=== PATIENT | male | born 1945 | race Caucasian/White ===

== ENCOUNTER 2016-08-26 10:12 | Inpatient (IN) ==
--- NOTE | 2016-08-25 21:07 | Discharge Summary ---
<Greer Doe - Last Filed: 08/25/16 21:05> Date of Encounter: 08/25/16 - Discharge Diagnosis (1) Left shoulder pain Priority: Primary Status: Acute Qualifiers: Chronicity: acute Qualified Code(s): M25.512 - Pain in left shoulder (2) Status post total shoulder arthroplasty Priority: Primary Status: Acute Qualifiers: Laterality: left Qualified Code(s): Z96.612 - Presence of left artificial shoulder joint (3) CAD (coronary artery disease) Priority: Secondary Status: Chronic Qualifiers: Coronary Disease-Associated Artery/Lesion type: unspecified vessel or lesion type [place] vs. transplanted heart: unspecified whether [place] or transplanted heart Associated angina: angina presence unspecified Qualified Code(s): I25.10 - Atherosclerotic heart disease of [place] coronary artery without angina pectoris (4) Tobacco abuse Priority: Secondary Status: Chronic - Discharge Medications Home Medications: OxyCODONE Immed Rel [Roxicodone 5 MG] 5 - 10 mg PO Q6HR PRN #40 tablet 08/25/16 [Rx] Aspirin 81 mg PO HS 08/26/16 [History] Atorvastatin [Lipitor] 40 mg PO HS 08/26/16 [History] Clopidogrel [Plavix] 75 mg PO HS 08/26/16 [History] Escitalopram [Lexapro] 10 mg PO DAILY 08/26/16 [History] Metoprolol XL (24 HR) Succ [Toprol XL] 50 mg PO HS 08/26/16 [History] Nitroglycerin [Nitrostat] 0.4 mg SL Q5M PRN 08/26/16 [History] Omeprazole [PriLOSEC] 40 mg PO DAILY 08/26/16 [History] Oxycodone HCl/Acetaminophen [Percocet 5-325 mg Tablet] 1 each PO Q6H PRN [History] Ranitidine HCl [Zantac] 150 mg PO BID 08/26/16 [History] TraZODone 50 mg PO HS 08/26/16 [History] Allergies/Adverse Reactions: Allergies acetaminophen [From Vicodin] Adverse Reaction (Verified 08/26/16 12:08) Vomiting hydrocodone [From Vicodin] Adverse Reaction (Verified 08/26/16 12:08) Vomiting Hydromorphone [From Dilaudid] Adverse Reaction (Verified 08/26/16 12:08) Difficulty Breathing Primary care physician: Ángel Arguelles - Patient Status Disposition: Home, Self-Care Condition: Good - Discharge Instructions Follow Up With: Alexander Hansen MD [Partnered Physician] - 09/24/16 10:30 am Greer Doe PAC [Physician Setter Molding And Coremaking Machines] - 09/06/16 10:45 am Ángel Arguelles [Primary Care Provider] - - Hospital Course Hospital course: Mr. Back is a 70 year old male - Time Spent with Patient Total time spent providing and/or coordinating discharge services: <Alexander Hansen - Last Filed: 08/27/16 06:21> Date of Encounter: 08/27/16 Time of Encounter: 06:20 - Discharge Diagnosis (1) Left shoulder pain Priority: Primary Status: Acute Qualifiers: Chronicity: acute Qualified Code(s): M25.512 - Pain in left shoulder (2) Status post total shoulder arthroplasty Priority: Secondary Status: Acute Qualifiers: Laterality: left Qualified Code(s): Z96.612 - Presence of left artificial shoulder joint (3) CAD (coronary artery disease) Priority: Secondary Status: Chronic Qualifiers: Coronary Disease-Associated Artery/Lesion type: unspecified vessel or lesion type [place] vs. transplanted heart: unspecified whether [place] or transplanted heart Associated angina: angina presence unspecified Qualified Code(s): I25.10 - Atherosclerotic heart disease of [place] coronary artery without angina pectoris (4) Tobacco abuse Priority: Secondary Status: Chronic (5) Obesity (BMI 35.0-39.9 without comorbidity) Priority: Secondary Status: Chronic Primary care physician: Ángel Arguelles - Patient Status Functional capacity at discharge: independent ambulation Overall status at discharge: patient is progressing back to baseline - Hospital Course Hospital course: Mr. Back is a 70 year old male The patient had an uneventful postoperative course. They received antibiotics and physical therapy and were discharged in stable condition. There will follow -up in the office in 2 weeks. - Time Spent with Patient Total time spent providing and/or coordinating discharge services:
[2016-08-26] MEDS ORDERED: Albuterol 2.5 MG/3 ML NEBULIZER IH ONE (10:32)
[2016-08-26] MEDS ORDERED: CeFAZolin Pre 2,000 MG/100 ML 2,000 MG/100 ML BAG IVPB ONE (10:32)
[2016-08-26] MEDS ORDERED: Lidocaine 1% 20 ML MDV ID ONE (10:32)
--- NOTE | 2016-08-26 10:42 | History & Physical Report ---
Date of Encounter: 08/26/16 Time of Encounter: 10:42 24 Hour HP Update - Instructions Instructions: If the History and Physical is less than 30 days old and was completed prior to A.M. admission and or procedure and has NOT been updated on calendar day of procedure please complete this update prior to performing procedure. - Update Patient reports changes in Medical Condition: No Changes in assessment/condition: No Changes in Medication: No Preop tests/diagnostics Reviewed: Yes Surgery Remains Indicated: Yes Consent for Planned Operative Procedure(s) Verified: Yes - Pre-Operative Checklist Preoperative Checklist Indicated: No Prophylactic Antibiotic Ordered: Yes Is VTE Prophylaxis Indicated?: Yes
--- NOTE | 2016-08-26 10:51 | Anesthesia Evaluation PreOp ---
Date of Encounter: 08/26/16 Time of Encounter: 10:49 - Past History Planned Operation: Left Total Shoulder Replacement Cardiac History: [place] ([place] x 2), HTN, Hyperlipidemia, Cardiac Stent (stents x 4) Pulmonary History: Smoker (60 years), Snore PUMP TECHNICIAN History: TIA Other Medical History: Denies Any Significant HX, GERD Anesthesia History: No Prior Anesthetic Complications, Past Anesthesia Alcohol Use: occasionally Drug use: none Medications and Allergies OxyCODONE Immed Rel [Roxicodone 5 MG] 5 - 10 mg PO Q6HR PRN #40 tablet 08/25/16 [Rx] Allergies acetaminophen [From Vicodin] Adverse Reaction (Unverified 06/01/15 10:32) Vomiting hydrocodone [From Vicodin] Adverse Reaction (Unverified 06/01/15 10:32) Vomiting Hydromorphone [From Dilaudid] Adverse Reaction (Unverified 06/01/15 10:32) Difficulty Breathing - Meds/Allergy Pre-op Review Medications Reviewed: Yes Allergies Reviewed: Yes Beta Blockers on Current Med List: Yes If Beta Blockers taken, Date/Time (Last Dose taken): 08/25/2016 at 2030 Anesthesia Results - Imaging EKG: report reviewed (08/16/2016 SR, 1st degree AV block, NSST abnormality) Anesthesia Exam O2 Sat Height 1.73 m Height 1.73 m Height 1.73 m Weight 108.863 kg Weight 108.863 kg Weight 108.863 kg O2 Sat by Pulse Oximetry 95 O2 Sat by Pulse Oximetry 95 O2 Sat by Pulse Oximetry 95 Vital Signs Temp Pulse Resp BP Pulse Ox 98.7 F 61 18 127/76 95 08/26/16 10:38 08/26/16 10:38 08/26/16 10:38 08/26/16 10:38 08/26/16 10:38 Height: 5'8'' Weight: 240 lbs NPO (# of Hours): 8 Pain Scale: 9 (left shoulder) Pain Scale Used: Numeric (1 - 10) - HEENT Pupil (Motor): EOMI Mallampati: II Teeth: Edentulous Oral Opening: Greater than 3 - PUMP TECHNICIAN LOC: Oriented PUMP TECHNICIAN Motor: Normal RUE, Normal RLE, Normal LLE, Normal Face, Deficit LUE PUMP TECHNICIAN Sensory: Normal: RUE, LLE, Face, Deficit: LUE (numbness/tingling) - Cardiac Rhythm: Regular Murmur: None - Pulmonary Breath Sounds: bilateral Clear Respiratory Effort: Symmetrical Anesthesia Assess/Plan ASA Score: 3 Modified [place] Scale for Level of Consciousness: Cooperative, oriented, and tranquil Anesthetic Plan: General Monitoring Plan: Standard Monitors Recovery Plan: PACU
[2016-08-26] MEDS: Ringers Solution, Lactated 1,000 ML IVC SCH ×2 (11:00→14:22)
[2016-08-26] MEDS ORDERED: *HR* Promethazine 25 MG/ML VIAL IVP PRN (12:26)
[2016-08-26] MEDS ORDERED: Ondansetron 4 MG/2 ML VIAL ONE (12:47)
[2016-08-26] MEDS ORDERED: Lidocaine -MPF 2% 2 ML VIAL ONE (12:47)
[2016-08-26] MEDS ORDERED: Dexamethasone 4 MG/ML VIAL ONE (12:47)
[2016-08-26] MEDS ORDERED: Lidocaine -MPF 4% 5 ML AMPUL ONE (12:47)
[2016-08-26] MEDS ORDERED: *HR* Succinylcholine 200 MG/10 ML VIAL IVP ONE (12:47)
[2016-08-26] MEDS ORDERED: *HR* FentaNYL (PF) 100 MCG/2 ML VIAL ONE ×3 (12:48→14:49)
[2016-08-26] MEDS ORDERED: *HR* Midazolam HCl 2 MG/2 ML VIAL ONE (12:48)
[2016-08-26] MEDS ORDERED: *HR* Morphine 10 MG/ML VIAL ONE ×2 (13:28→14:48)
--- NOTE | 2016-08-26 14:21 | Orthopedic Operative Note ---
Date of procedure: 08/26/16 Pre-op diagnosis: Painful left total shoulder replacement reverse Post-op diagnosis: same Procedure: Procedure: Left Revision Total Shoulder replacement reverse Estimated blood loss: 500 cc Hardware: Arthrex large baseplate, 24.5 screws one 6.5 screw, 42 lateralized sphere, 14 humeral stem, 3 Liane Procedural Notes: No sign of infection no abnormal poly-wear Operative procedure: The patient was brought to the operating room and placed on the operating room table. The patient was placed in the modified beachchair position. All pressure points were padded appropriately. And the head was stabilized in the neutral position. The operative extremity was prepped and draped in the sterile surgical fashion. The patient received IV antibiotics prior to skin incision. A standard deltopectoral approach was made to the operative shoulder. Incision was made to the skin and subcutaneous tissue through the old incision,hemo stasis was obtained with Bovie cautery. Using careful blunt dissection the cephalic vein was identified and mobilized medially. The deltopectoral interval was developed and the clavipectoral fascia was incised. An extensive debridement was performed, and the shoulder was dislocated subscap was not identifiable. Using an osteotome to clear out the soft tissue, the humeral component was gently removed. The component was not grossly loose but was removed without significant bone loss although fragmentation of the proximal humerus occurred with retraction for exposure of the glenoid. Anterior and posterior [place] retractors were used to expose the glenoid, the glenoid component was removed without incident. First the glenosphere was disengaged, and the screws removed from the baseplate, and finally the baseplate was removed without significant bone loss. The glenoid guide was seated the centering hole was made the glenoid was reamed with the appropriate large reamer. Baseplate was positioned in inferior tilt position to make a change. The glenoid baseplate was seated and secured and locked in place with 24.5 compression screws and one 6.5 compression screw.. The baseplate was irrigated and dried 42 lateral glenosphere was seated and secured. Attention was then turned to the humeral side. The humerus was reamed and broached up to its appropriate size 14 in 20 degrees of retroversion. Trial reduction found the shoulder to be relocatable. Trial components were removed, real implants were seated. Trial reduction found the shoulder to be stable with the appropriate 3 Liane. The trial implants were removed the real implants were seated and secured in the shoulder was reduced. The patient had excellent motion and excellent stability no shuck. The deep tissue was irrigated with pulse irrigation deltopectoral interval was closed with #2 PDS suture. Superficially the subcutaneous tissue was closed with 0 PDS suture, the skin was closed with Dermabond and skin miles. The patient placed sterile dressing, postoperative brace extubated and transferred to the recovery room in stable condition. Anesthesia: GETA Surgeon: Alexander Hansen Sewing Machine Operator: Greer Doe Condition: stable Disposition: PACU
[2016-08-26] MEDS: *HR* Morphine 2 MG/ML SYRINGE IVP PRN ×2 (14:55→15:20)
[2016-08-26] MEDS ORDERED: *HR* Propofol 200 MG/20 ML VIAL IVP ONE (15:24)
--- NOTE | 2016-08-26 15:39 | Anesthesia Evaluation Post Op ---
Date of Encounter: 08/26/16 Time of Encounter: 15:36 - Vital Signs Vital Signs: Vital Signs/O2 Sat, Most Current Temp Pulse Resp BP Pulse Ox 97.5 F L 78 16 138/98 94 L 08/26/16 15:10 08/26/16 15:20 08/26/16 15:20 08/26/16 15:20 08/26/16 15:20 - Lungs Lungs: Clear Ascult./Percussion - Airway Airway: Non-obstructed (on CPAP) - Cardiovascular Regular Rate - Mental Status Mental Status: Asleep with brisk response to light stimulation - Pain Pain Scale: 6 Pain Scale used: Numeric (1 - 10) - Nausea Vomiting Nausea Vomiting: Not Present - Hydration Hydration: NPO, Has not voided - Discharge PostOp Status: Transfer Patient to floor
[2016-08-26 15:54] LABS: Hemoglobin 14.5 g/dL (12.9-16.9)
[2016-08-26] MEDS ORDERED: Ringers Solution, Lactated 1,000 ML IVC SCH (16:05)
[2016-08-26] MEDS ORDERED: Sennosides 8.6 MG TABLET PO PRN (16:05)
[2016-08-26] MEDS ORDERED: *HR* Morphine 2 MG/ML SYRINGE IVP PRN (16:05)
[2016-08-26] MEDS ORDERED: Naloxone 0.4 MG/ML INJ IVP PRN (16:05)
[2016-08-26] MEDS ORDERED: Temazepam 15 MG CAPSULE PO PRN (16:05)
[2016-08-26] MEDS ORDERED: MOM Conc 10 ML UD.LIQ PO PRN (16:05)
[2016-08-26] MEDS: Ondansetron 4 MG/2 ML VIAL IVP PRN (16:23)
[2016-08-26] MEDS: *HR* OxyCODONE Immed Rel 5 MG TABLET PO PRN ×2 (16:29→23:15)
[2016-08-26] MEDS ORDERED: *HR* Enoxaparin 30 MG/0.3 ML SYRINGE SQ SCH (18:00)
[2016-08-26] MEDS ORDERED: *HR* Promethazine 25 MG/ML VIAL IM PRN (18:10)
[2016-08-26] MEDS: *HR* Enoxaparin 30 MG/0.3 ML SYRINGE SQ SCH (18:13)
[2016-08-26] MEDS: ceFAZolin 2,000 MG in D5% in Water 100 ML IVPB SCH ×2 (18:13→23:15)
[2016-08-26] MEDS ORDERED: *HR* Promethazine 25 MG/ML VIAL IV PRN (18:16)
[2016-08-26] MEDS ORDERED: *HR* Promethazine 25 MG/ML VIAL ONE (18:25)
[2016-08-26] MEDS: Metoprolol XL (24 HR) Succ 50 MG TAB.ER.24H PO SCH (21:10)
[2016-08-27] MEDS: *HR* OxyCODONE Immed Rel 5 MG TABLET PO PRN ×6 (03:32→23:48)
[2016-08-27] MEDS: *HR* Enoxaparin 30 MG/0.3 ML SYRINGE SQ SCH ×2 (04:38→17:53)
--- NOTE | 2016-08-27 06:21 | Orthopedics Progress Note ---
Date of Encounter: 08/27/16 Time of Encounter: 06:21 - Assessment and Plan (1) Left shoulder pain Current Visit: Yes Status: Acute Qualifiers: Chronicity: acute Qualified Code(s): M25.512 - Pain in left shoulder (2) Status post total shoulder arthroplasty Current Visit: Yes Status: Acute Qualifiers: Laterality: left Qualified Code(s): Z96.612 - Presence of left artificial shoulder joint (3) CAD (coronary artery disease) Current Visit: Yes Status: Chronic Qualifiers: Coronary Disease-Associated Artery/Lesion type: unspecified vessel or lesion type [place] vs. transplanted heart: unspecified whether [place] or transplanted heart Associated angina: angina presence unspecified Qualified Code(s): I25.10 - Atherosclerotic heart disease of [place] coronary artery without angina pectoris (4) Tobacco abuse Current Visit: Yes Status: Chronic (5) Obesity (BMI 35.0-39.9 without comorbidity) Current Visit: Yes Status: Chronic Subjective Interval history: Patient was seen this morning doing well without complaints. Afebrile vital signs stable. Operative extremity: Neurovascularly intact Dressing clean dry and intact Calves nontender Assessment and plan: Continue with postoperative care Discharged today Objective Vital signs: Vital Signs Temp Pulse Resp BP Pulse Ox 08/27/16 04:28 95 08/27/16 03:55 97.2 F L 75 16 114/75 95 08/27/16 00:09 97.8 F 81 18 131/81 95 08/26/16 19:29 97.3 F L 83 16 148/83 94 L 08/26/16 18:08 98.0 F 93 20 108/71 93 L 08/26/16 17:24 80 16 102/68 94 L 08/26/16 17:17 97.6 F 80 16 102/68 94 L 08/26/16 16:32 97.9 F 76 16 137/7 93 L 08/26/16 16:08 98.0 F 77 16 131/84 93 L 08/26/16 15:40 97.5 F L 77 16 140/87 95 08/26/16 15:30 80 16 128/96 94 L 08/26/16 15:20 78 16 138/98 94 L 08/26/16 15:10 97.5 F L 77 16 169/87 96 08/26/16 15:09 16 90 L 08/26/16 15:00 78 16 170/115 95 08/26/16 14:50 77 16 146/95 94 L 08/26/16 14:40 97.1 F L 75 16 102/80 93 L 08/26/16 10:43 98.7 F 61 18 127/76 95 08/26/16 10:38 98.7 F 61 18 127/76 95 Intake and Output 08/26/16 08/26/16 08/27/16 15:59 23:59 07:59 Intake Total 1100 / 1100 200 / 200 Output Total 300 / 300 20 / 20 350 / 350 Balance 800 / 800 180 / 180 -350 / -350 Intake: IV Fluids 1100 / 1100 100 / 100 Lactated Ringers 1,000 ML 1000 / 1000 @ 75 mls/hr IVC .[id number] YARY Rx#:[id number] Ancef 2,000 MG In 100 / 100 Dextrose 5% 100 ML @ 200 mls/hr IVPB Q8HR YARY Rx#: [id number] Ancef Premix 2,000 MG/100 100 / 100 ML 2,000 mg In 100 ml @ 200 mls/hr IVPB PREOP ONE Rx#:[id number] Oral 100 / 100 Output: Urine 350 / 350 Emesis 20 / 20 Estimated Blood Loss 300 / 300 Other: # Voids 1 Weight 108.863 kg - Labs CBC & BMP: 08/26/16 14:58 - VTE Documentation of Mechanical Device: Venous foot pump, device Consult Discharge Plan - Plan Referrals: Alexander Hansen MD [Partnered Physician] - 09/24/16 10:30 am Greer Doe, PAC [Physician Business Liaison Manager] - 09/06/16 10:45 am Ángel Arguelles [Primary Care Provider] -
[2016-08-27 07:03] LABS: Hematocrit 35.2 % (37.5-50.1)
[2016-08-27 07:07] LABS: Hemoglobin 12.2 g/dL (12.9-16.9)
[2016-08-27] MEDS: Metoprolol XL (24 HR) Succ 50 MG TAB.ER.24H PO SCH (17:53)
[2016-08-28] MEDS: *HR* OxyCODONE Immed Rel 5 MG TABLET PO PRN ×4 (03:56→22:58)
[2016-08-28] MEDS: *HR* Enoxaparin 30 MG/0.3 ML SYRINGE SQ SCH ×2 (05:19→17:08)
[2016-08-28 06:32] LABS: Hematocrit 34.2 % (37.5-50.1)
--- NOTE | 2016-08-28 06:36 | Orthopedics Progress Note ---
Date of Encounter: 08/28/16 Time of Encounter: 06:36 - Assessment and Plan (1) Left shoulder pain Current Visit: Yes Status: Acute Qualifiers: Chronicity: acute Qualified Code(s): M25.512 - Pain in left shoulder (2) Status post total shoulder arthroplasty Current Visit: Yes Status: Acute Qualifiers: Laterality: left Qualified Code(s): Z96.612 - Presence of left artificial shoulder joint (3) CAD (coronary artery disease) Current Visit: Yes Status: Chronic Qualifiers: Coronary Disease-Associated Artery/Lesion type: unspecified vessel or lesion type [place] vs. transplanted heart: unspecified whether [place] or transplanted heart Associated angina: angina presence unspecified Qualified Code(s): I25.10 - Atherosclerotic heart disease of [place] coronary artery without angina pectoris (4) Tobacco abuse Current Visit: Yes Status: Chronic (5) Obesity (BMI 35.0-39.9 without comorbidity) Current Visit: Yes Status: Chronic Subjective Interval history: Patient was seen this morning doing well [place] with steadiness on feet. No obvious signs of weakness on exam. Afebrile vital signs stable. Operative extremity: Neurovascularly intact Dressing clean dry and intact Calves nontender Assessment and plan: Continue with postoperative care Discharged today hematocrit 35 Objective Vital signs: Vital Signs Temp Pulse Resp BP Pulse Ox 08/28/16 05:24 95 08/28/16 04:00 98.9 F 78 16 100/65 95 08/28/16 01:10 99.6 F 80 17 111/63 92 L 08/27/16 20:34 99.2 F 88 16 133/69 95 08/27/16 15:15 98.7 F 82 16 118/69 93 L 08/27/16 10:39 98.8 F 81 16 100/56 93 L 08/27/16 06:49 99.4 F 77 18 111/69 93 L - Labs CBC & BMP: 08/27/16 06:36 Labs: Abnormal lab results Hgb 12.2 g/dL (12.9-16.9) L D 08/27/16 06:36 Hct 35.2 % (37.5-50.1) L 08/27/16 06:36 - VTE Documentation of Mechanical Device: Venous foot pump, device Consult Discharge Plan - Plan Referrals: Alexander Hansen MD [Partnered Physician] - 09/24/16 10:30 am Greer Doe, PAC [Physician House Registry Rn] - 09/06/16 10:45 am Ángel Arguelles [Primary Care Provider] -
[2016-08-28] MEDS: Metoprolol XL (24 HR) Succ 50 MG TAB.ER.24H PO SCH (17:08)
[2016-08-28] MEDS: Ondansetron 4 MG/2 ML VIAL IVP PRN (17:08)
[2016-08-29] MEDS: *HR* OxyCODONE Immed Rel 5 MG TABLET PO PRN ×3 (03:11→12:04)
[2016-08-29] MEDS: *HR* Enoxaparin 30 MG/0.3 ML SYRINGE SQ SCH (05:04)
--- NOTE | 2016-08-29 08:45 | Orthopedics Progress Note ---
Date of Encounter: 08/29/16 Time of Encounter: 08:45 - Assessment and Plan (1) Left shoulder pain Current Visit: Yes Status: Acute Qualifiers: Chronicity: acute Qualified Code(s): M25.512 - Pain in left shoulder (2) Status post total shoulder arthroplasty Current Visit: Yes Status: Acute Qualifiers: Laterality: left Qualified Code(s): Z96.612 - Presence of left artificial shoulder joint (3) CAD (coronary artery disease) Current Visit: Yes Status: Chronic Qualifiers: Coronary Disease-Associated Artery/Lesion type: unspecified vessel or lesion type [place] vs. transplanted heart: unspecified whether [place] or transplanted heart Associated angina: angina presence unspecified Qualified Code(s): I25.10 - Atherosclerotic heart disease of [place] coronary artery without angina pectoris (4) Tobacco abuse Current Visit: Yes Status: Chronic (5) Obesity (BMI 35.0-39.9 without comorbidity) Current Visit: Yes Status: Chronic Subjective Interval history: Patient was seen this morning doing well doing better as compared to yesterday.. Afebrile vital signs stable. Operative extremity: Neurovascularly intact Dressing clean dry and intact Calves nontender Assessment and plan: Continue with postoperative care Discharged today Objective Vital signs: Vital Signs Temp Pulse Resp BP Pulse Ox 08/29/16 06:41 98.9 F 92 16 107/73 93 L 08/29/16 00:46 99.3 F 80 16 108/64 92 L 08/28/16 21:02 99.5 F 85 17 102/70 92 L 08/28/16 14:26 98.9 F 87 16 119/67 93 L 08/28/16 11:45 99.8 F H 82 18 117/72 91 L Intake and Output 08/28/16 08/29/16 08/29/16 23:59 07:59 15:59 Intake Total 700 / 700 150 / 150 Output Total 350 / 350 Balance 350 / 350 150 / 150 Intake: Oral 700 / 700 150 / 150 Output: Urine 350 / 350 Other: # Voids 1 1 - Labs CBC & BMP: 08/28/16 06:23 Labs: Abnormal lab results Hgb 12.0 g/dL (12.9-16.9) L 08/28/16 06:23 Hct 34.2 % (37.5-50.1) L 08/28/16 06:23 - VTE Documentation of Mechanical Device: Venous foot pump, device Consult Discharge Plan - Plan Referrals: Alexander Hansen MD [Partnered Physician] - 09/24/16 10:30 am Greer Doe PAC [Physician Tower Switch Operator] - 09/06/16 10:45 am Ángel Arguelles [Primary Care Provider] -
[2016-08-29 09:49] LABS: Hematocrit 32.9 % (37.5-50.1); Hemoglobin 11.8 g/dL (12.9-16.9)
[2016-08-29 11:49] VITALS: BP 108/75
== END 2016-08-29 14:40 | DRG 483 ==
LOC: SAMDAY 10:12 → 3NENU 16:03
PROVIDERS: ADMIT Orthopaedic Surgery; ATTEND Orthopaedic Surgery